=== PATIENT | male | born 1970 | race Caucasian/White ===

== ENCOUNTER 2017-03-26 02:30 | Emergency (ER) | payer OTHER ==
[~2017-03-26] VITALS: Ht 180.3 cm; Wt 117.9 kg
[2017-03-26 02:35] VITALS: BP 148/99
[2017-03-26] MEDS ORDERED: ONDANSETRON 4 MG/2 ML VIAL IVP ONE ×3 (03:00→06:10)
[2017-03-26] MEDS ORDERED: KETOROLAC 30 MG/ML VIAL IVP ONE ×2 (03:00→04:10)
[2017-03-26] MEDS ORDERED: NACL 0.9% 1,000 ML IV ONE ×2 (03:00→04:45)
[2017-03-26] MEDS ORDERED: MORPHINE SULFATE 4 MG/ML SYR IVP ONE ×2 (03:00→04:10)
[2017-03-26] MEDS ORDERED: KETOROLAC 30 MG/ML VIAL ONE (03:13)
[2017-03-26] MEDS ORDERED: MORPHINE SULFATE 4 MG/ML SYR ONE (03:13)
[2017-03-26] MEDS ORDERED: ONDANSETRON 4 MG/2 ML VIAL ONE (03:14)
[2017-03-26 03:19] LABS: BASOPHILS # (AUTO) 0.5 K/uL (0.00-0.22); EOSINOPHILS # (AUTO) 0.3 K/uL (0-0.4); EOSINOPHILS % (AUTO) 2.7 % (0.0-4.0); HEMOGLOBIN 15.6 g/dL (12.0-18.0); LYMPHOCYTES # (AUTO) 1.5 K/uL (2.0-11.5); LYMPHOCYTES % (AUTO) 13.1 % (20.5-51.1); MEAN CORPUSCULAR HEMOGLOBIN 28 pg (27-31); MEAN CORPUSCULAR HGB CONC 33 g/dL (33-37); MEAN CORPUSCULAR VOLUME 85 fL (80-94); MONOCYTES # (AUTO) 1.2 K/uL (0.8-1.0); MONOCYTES % (AUTO) 10.8 % (1.7-9.3); NEUTROPHILS # (AUTO) 7.8 K/uL (1.8-7.7); NEUTROPHILS % (AUTO) 69.4 % (42.2-75.2); PLATELET COUNT (AUTO) 238 K/uL (140-450); RED BLOOD CELL COUNT(AUTO) 5.68 MIL/uL (4.20-6.10); RED CELL DISTRIBUTION WIDTH 12.2 % (11.6-13.7); WHITE BLOOD COUNT (AUTO) 11.3 K/uL (4.8-10.8)
[2017-03-26 03:28] LABS: ANION GAP 15.3 (8-16); CARBON DIOXIDE 22.6 mmol/L (21-32); CREATININE 1.1 mg/dL (0.7-1.3); POTASSIUM 3.9 mmol/L (3.5-5.1)
[2017-03-26 03:34] LABS: ALBUMIN 3.9 g/dL (3.4-5.0); TOTAL BILIRUBIN 1.3 mg/dL (0.0-1.0)
[2017-03-26] MEDS ORDERED: HYDROmorphone 1 MG/ML AMP IVP ONE (05:20)
[2017-03-26 08:00] VITALS: BP 129/71
== END 2017-03-26 08:00 | disposition home or self-care (01) ==
LOC: MED 02:30
DX: N20.1 Calculus of ureter (principal)
CPT/HCPCS: 36415; 74176; 80053; 81002; 83690; 85025; 96361; 96374; 96375; 96376; 99285; J1170; J1885; J2270; J2405; J7030

== ENCOUNTER 2021-05-05 11:30 | Emergency (ER) | payer OTHER ==
[~2021-05-05] VITALS: Ht 180.3 cm; Wt 2.6 kg
[2021-05-05 11:37] VITALS: BP 143/80
--- NOTE | 2021-05-05 11:39 | NUR ---
PT W/C TO BED 7
--- NOTE | 2021-05-05 11:39 | NUR ---
PER ERMD 12 LEAD WAS DONE ON PT AND CAME BACK NSR AT 58 HR.
--- NOTE | 2021-05-05 11:58 | NUR ---
51 Y/O MALE C/O CHEST PAIN 5/10 DESCRIBES TIGHTNESS RADIATES TO LEFT ARM X1DAY. PT STATES +DIZZINESS, +N/-V SINCE THIS MORNING. DENIES FEVER/CHILLS. DENIES N/V. DENIES TRAUMA/INJURY. PMH: DIVERTICULITIS NKA
--- NOTE | 2021-05-05 12:10 | NUR ---
DR. ARREOLA AT PT BEDSIDE FOR FURTHER EVALUATION.
--- NOTE | 2021-05-05 12:42 | NUR ---
IV ESTABLISHED TO LEFT HAND 20G, GOOD BLOOD RETURN, LABS COLLECTED WALKED TO LAB.
--- NOTE | 2021-05-05 12:42 | NUR ---
RETENTION SPECIALIST AT PT BEDSIDE.
--- NOTE | 2021-05-05 12:43 | NUR ---
XRAY BEDSIDE WITH PATIENT
[2021-05-05 12:48] LABS: BASOPHILS # (AUTO) 0.1 K/uL (0.00-0.22); BASOPHILS % (AUTO) 0.9 % (0.0-2.0); EOSINOPHILS # (AUTO) 0.3 K/uL (0-0.4); EOSINOPHILS % (AUTO) 4.8 % (0.0-4.0); HEMATOCRIT 40.6 % (36-52); HEMOGLOBIN 14.1 g/dL (12.0-18.0); LYMPHOCYTES # (AUTO) 1.5 K/uL (2.0-11.5); LYMPHOCYTES % (AUTO) 23.3 % (20.5-51.1); MEAN CORPUSCULAR HEMOGLOBIN 28 pg (27-31); MEAN CORPUSCULAR HGB CONC 35 g/dL (33-37); MEAN CORPUSCULAR VOLUME 81.8 fL (80-94); MONOCYTES # (AUTO) 0.6 K/uL (0.8-1.0); MONOCYTES % (AUTO) 9.3 % (1.7-9.3); NEUTROPHILS # (AUTO) 3.9 K/uL (1.8-7.7); NEUTROPHILS % (AUTO) 61.7 % (42.2-75.2); PLATELET COUNT (AUTO) 215 K/uL (140-450); RED BLOOD CELL COUNT(AUTO) 4.96 MIL/uL (4.20-6.10); WHITE BLOOD COUNT (AUTO) 6.3 K/uL (4.8-10.8)
--- NOTE | 2021-05-05 12:51 | NUR ---
PT RESTING, AT PT BEDSIDE, VSS, WILL CONTINUE TO MONITOR.
[2021-05-05 12:58] LABS: ALBUMIN 3.4 g/dL (3.4-5.0); ANION GAP 15.4 (8-16); CARBON DIOXIDE 22.7 mmol/L (21-32); CREATININE 0.9 mg/dL (0.6-1.3); POTASSIUM 4.1 mmol/L (3.5-5.1); TOTAL BILIRUBIN 0.7 mg/dL (0.0-1.0)
[2021-05-05] MEDS ORDERED: ASPIRIN 81 MG TAB.CHEW PO ONE (13:15)
[2021-05-05] MEDS ORDERED: METOCLOPRAMIDE 10 MG/2 ML INJ VIAL IVP ONE (13:15)
[2021-05-05] MEDS ORDERED: NITROGLYCERIN 0.4 MG TAB SL ONE (13:25)
--- NOTE | 2021-05-05 13:25 | NUR ---
PT AMBULATED TO RESTROOM WITH A STEADY GAIT.
--- NOTE | 2021-05-05 13:28 | NUR ---
PT AMBULATED TO ER BED 7 WITH A STEADY GAIT.
--- NOTE | 2021-05-05 14:35 | NUR ---
PER ERMD 12 LEAD WAS DONE ON PT AND CAME BACK NSR AT 51 HR.
--- NOTE | 2021-05-05 14:48 | NUR ---
PT RESTING, AT PT BEDSIDE, VSS, WILL CONTINUE TO MONITOR.
--- NOTE | 2021-05-05 15:47 | NUR ---
DR. MONTGOMERY AT PT BEDSIDE FOR RE-EVALUATION.
--- NOTE | 2021-05-05 16:37 | NUR ---
PT AMBULATED TO RESTROOM WITH A STEADY GAIT.
--- NOTE | 2021-05-05 16:39 | NUR ---
PT AMBULATED TO ER BED 7 WITH A STEADY GAIT.
--- NOTE | 2021-05-05 16:59 | NUR ---
PT RESTING IN BED, VSS, WILL CONTINUE TO MONITOR.
--- NOTE | 2021-05-05 18:06 | NUR ---
GAVE REPORT TO DUSTIN MCLEAN FOR PENDING TRANSFER TO [facility]. ETA 1HR.
--- NOTE | 2021-05-05 19:21 | NUR ---
GAVE REPORT TO DUSTIN VELOZ. TRANSFER OF CARE AT THIS TIME.
--- NOTE | 2021-05-05 22:13 | NUR ---
[facility] TRANSPORT AT BEDSIDE
[2021-05-05 22:21] VITALS: BP 130/72
--- NOTE | 2021-05-05 22:22 | NUR ---
PT TAKEN BY [facility]ORT TO [facility]
--- NOTE | 2021-05-05 22:22 | NUR ---
Patient to be transferred to [facility]. Is being transferred due to INSURANCE. Receiving facility has accepting physician and available space. ER physician has signed transfer form. Patient or responsible constitution party has agreed to transfer and signed form. Patient belongings inventoried and will be sent with patient. Copy of nursing notes, lab reports, EKG, Physicians Orders and X-rays to be sent with patient. Report called to DUSTIN MCLEAN at receiving facility.
== END 2021-05-05 22:22 | disposition short-term general hospital (02) ==
LOC: MED 11:30
DX: R07.9 Chest pain, unspecified (principal); R42 Dizziness and giddiness; Z20.822 Contact with and (suspected) exposure to COVID-19
CPT/HCPCS: 36415; 71045; 80053; 83880; 84443; 84484; 85025; 87426; 93005; 96374; 99285; J2765